=== PATIENT | female | born 1950 | race African-American/Black ===

== ENCOUNTER 2016-11-06 18:53 | Observation (INO) | payer MEDICARE, MEDICAID ==
[~2016-11-06] VITALS: Ht 160 cm; Wt 64.0 kg
[~2016-11-06 18:53] MED LIST: AMLO5 PO; ASPI-110 PO; FENO145T2 PO; FERR325T PO; FOSA70TA PO; LEVA750T PO; LEVE500 PO; LEVEMIR SQ; OMEG1CAP53 PO; PLAV75TA29 PO; PROT40TA PO; REME15TA PO
[2016-11-06 19:02] VITALS: BP 183/91; PULSE 96; RESP 18; TEMP 98.1; O2SAT 97
--- NOTE | 2016-11-06 19:18 | PD ---
HPI Chief Complaint: Altered Mental Status Time Seen by Provider: 19:13 Travel History International Travel<30 days: No Contact w/Intl Traveler<30days: No Traveled to known affect area: No History of Present Illness HPI The patient is a 66 year old female who presents to the [facility] emergency department with a history of altered mentation that began prior to arrival at her half-way. There is a report that the patient may have had an unwitnessed seizure and postictal. The patient was drowsy and less responsive. She was able to be awakened intermittently, however she would quickly fall back to sleep. The patient has a DNR status. The patient's history is significant for having a history of dementia and only being oriented to person. The patient reports that this time that she has abdominal pain on review of systems. She denies having any vomiting or diarrhea. She reports that she has been moving her bowels normally. Her other recent history is significant for reportedly having pneumonia status post treatment. She arrives afebrile. She arrives awake and alert. According to the record, she has a history of prior left-sided upper and lower extremity weakness at her baseline. The patient denies any recent fevers, neck pain, chest pain, shortness of breath, vomiting, diarrhea, or urinary symptoms. [facility] Past Medical History Narrative Medical The patient's past medical history is significant for dementia, history of recently diagnosed pneumonia status post treatment, history of coronary artery disease, hyperlipidemia, hypertension, prior history of cerebrovascular accident with residual left upper and left lower sternal weakness, acid reflux, history of urinary tract infection and pyelonephritis, history of nephrolithiasis, osteoporosis, osteoarthritis, diabetes mellitus. Anemia: Yes (IRON DEFICIENCY) Arthritis: Yes Asthma: No Heart Rhythm Problems: No Cancer: No Cardiovascular Problems: Yes High Cholesterol: Yes Chest Pain: No Congestive Heart Failure: No COPD: No Cerebrovascular Accident: Yes Diabetes: Yes Patient Takes Glucophage: No Diminished Hearing: Yes ([place]) Gastrointestinal Disorders: Yes (CANDIDAL STOMATITIS/HEMORRHOIDS) GERD: Yes Genitourinary: Yes Headaches: No Hepatitis: No Hiatal Hernia: No Hypertension: Yes Kidney Stones: Yes (08/04) Musculoskeletal: Yes (OSTEOPOROSIS/CONTRACTURE OF L ) Neurologic: No Psychiatric: No Reproductive: No Respiratory: No Migraines: No Myocardial Infarction: No Renal Failure: No Seizures: No Sleep Apnea: No Ulcer: No Menopausal: Yes Past Surgical History Narrative Surgical The patient's past surgical history is significant for left eye surgery, cataract surgery. Abdominal Surgery: No Appendectomy: No Cardiac Surgery: No Cholecystectomy: No Ear Surgery: No Endocrine Surgery: No Eye Surgery: Yes (EYE SURGERY 80'S ) Genitourinary Surgery: No Gynecologic Surgery: No Oral Surgery: No Thoracic Surgery: No Other Surgery: Yes (EYE SURGERY IN 80'S) Social History Alcohol Use: No Tobacco Use: No Substance Use: No Allergies-Medications (Allergen,Severity, Reaction): Coded Allergies: Benzodiazepines (Verified Allergy, Intermediate, 01/30/16) Penicillin (Verified Allergy, Mild, 05/10/09) Reported Meds & Prescriptions Reported Meds & Active Scripts Active Levaquin (Levofloxacin) 750 Mg Tab 750 Mg PO Q48H 5 Days Keppra (Levetiracetam) 500 Mg Tab 500 Mg PO Q12HR 30 Days Levemir Inj (Insulin Detemir) 1,000 unit/ 10 ML Vial 10 Units SQ DAILY 30 Days Norvasc (Amlodipine Besylate) 5 Mg Tab 5 Mg PO DAILY 30 Days Reported Protonix (Pantoprazole Sodium) 40 Mg Tab 40 Mg PO DAILY Plavix (Clopidogrel Bisulfate) 75 Mg Tab 75 Mg PO HS Remeron (Mirtazapine) 15 Mg Tab 15 Mg PO HS Lovaza (Bydod-3-Quha Ethyl Esters) 1 Gm Cap 2 Gm PO HS Fosamax (Alendronate Sodium) 70 Mg Tab 70 Mg PO WEEKLY Ferrous Sulfate 325 Mg Tab 325 Mg PO DAILY Fenofibrate 145 Mg Tab 145 Mg PO HS Aspirin 81 (Aspirin) 81 Mg Tabdr 81 Mg PO DAILY Review of Systems Except as stated in HPI: all other systems reviewed are Neg General / Constitutional: No: Fever Eyes: No: Visual changes HENT: No: Headaches Cardiovascular: No: Chest Pain or Discomfort Respiratory: No: Shortness of Breath Gastrointestinal: Positive: Abdominal Pain, No: Nausea, Vomiting, Diarrhea Genitourinary: No: Dysuria Musculoskeletal: No: Pain Skin: No Rash Neurologic: Positive: Change in Mentation, No: Weakness, Focal Abnormalities, Slurred Speech, Sensory Disturbance Psychiatric: No: Depression Endocrine: No: Polydipsia Hematologic/Lymphatic: No: Easy Bruising Physical Exam Narrative General: The patient is a well-developed well-nourished female in no acute distress. Head and Neck exam: Head is normocephalic atraumatic. Eyes: Pupils are equal round and reactive to light. Nose: Midline septum with pink mucous membranes Mouth: Dentition unremarkable. Moist mucus membranes. Posterior oropharynx is not erythematous. No tonsillar hypertrophy. Uvula midline. Airway patent. Neck: No palpable lymphadenopathy. No nuchal rigidity. No thyromegaly. Cardiovascular: Regular rate and rhythm without murmurs, gallops, or rubs. Lungs: Clear to auscultation bilaterally. No wheezes, rhonchi, or rales. Abdomen: Soft, with tenderness reported on palpation of bilateral upper quadrants of the abdomen and the left lower quadrant. The patient has increased tenderness on palpation of the left lower quadrant of the abdomen. There is no guarding, rebound, or rigidity. The patient has normal active bowel sounds. The patient has a negative Streeter sign. Patient has no tenderness on palpation over McBurney's point. Extremities: No clubbing, cyanosis, or edema. 2+ pulses in all 4 extremities. No calf tenderness on palpation. Back: No spinous process tenderness to palpation. No costovertebral angle tenderness to palpation. Neurologic Exam: She is oriented to person, however not place, time, or situation. The patient has left upper and left lower extremity paresis, with a prior history of residual weakness related to receive cerebrovascular accident. No evidence of facial asymmetry. Skin Exam: No rash noted. Intact skin that is warm and dry. Data Data Last Documented VS Vital Signs Date Time Temp Pulse Resp B/P Pulse Ox O2 Delivery O2 Flow Rate FiO2 11/06/16 20:18 97 Room Air 11/06/16 19:06 92 18 11/06/16 19:02 98.1 183/91 Orders Electrocardiogram (11/06/16 ) Complete Blood Count With Diff (11/06/16 19:18) Comprehensive Metabolic Panel (11/06/16 19:18) Prothrombin Time / Inr (Pt) (11/06/16 19:18) Act Partial Throm Time (Ptt) (11/06/16 19:18) Lactic Acid Sepsis Protocol (11/06/16 19:18) Magnesium (Mg) (11/06/16 19:18) Lipase (11/06/16 19:18) Ckmb (Isoenzyme) Profile (11/06/16 19:18) Troponin I (11/06/16 19:18) Urinalysis - C+S If Indicated (11/06/16 19:18) Blood Culture (11/06/16 19:18) Chest, Single Ap (11/06/16 19:18) Blood Glucose (11/06/16 19:18) Ecg Monitoring (11/06/16 19:18) Iv Access Insert/Monitor (11/06/16 19:18) Oximetry (11/06/16 19:18) Oxygen Administration (11/06/16 19:18) Ct Brain W/O Iv Contrast(Rout) (11/06/16 19:18) Urine Culture (11/06/16 19:55) Ceftriaxone Inj (Rocephin Inj) (11/06/16 20:30) Sodium Chlorid 0.9% 500 Ml Inj (Ns 500 M (11/06/16 20:30) Sodium Chlor 0.9% 1000 Ml Inj (Ns 1000 M (11/06/16 20:30) Admit Order (Ed Use Only) (11/06/16 20:28) Ct Abd/Pel W/O Iv Contrast (11/06/16 19:19) Labs Laboratory Tests Test 11/06/16 11/06/16 19:22 19:55 White Blood Count 9.8 TH/MM3 Red Blood Count 3.68 MIL/MM3 Hemoglobin 12.0 GM/DL Hematocrit 35.4 % Mean Corpuscular Volume 96.3 FL Mean Corpuscular Hemoglobin 32.7 PG Mean Corpuscular Hemoglobin 33.9 % Concent Red Cell Distribution Width 14.4 % Platelet Count 341 TH/MM3 Mean Platelet Volume 8.2 FL Neutrophils (%) (Auto) 60.3 % Lymphocytes (%) (Auto) 29.6 % Monocytes (%) (Auto) 8.9 % Eosinophils (%) (Auto) 0.9 % Basophils (%) (Auto) 0.3 % Neutrophils # (Auto) 5.9 TH/MM3 Lymphocytes # (Auto) 2.9 TH/MM3 Monocytes # (Auto) 0.9 TH/MM3 Eosinophils # (Auto) 0.1 TH/MM3 Basophils # (Auto) 0.0 TH/MM3 CBC Comment DIFF FINAL Differential Comment Prothrombin Time 10.6 SEC Prothromb Time International 1.0 RATIO Ratio Activated Partial 24.1 SEC Thromboplast Time Sodium Level 141 MEQ/L Potassium Level 4.7 MEQ/L Chloride Level 108 MEQ/L Carbon Dioxide Level 25.5 MEQ/L Anion Gap 8 MEQ/L Blood Urea Nitrogen 33 MG/DL Creatinine 1.88 MG/DL Estimat Glomerular Filtration 32 ML/MIN Rate Random Glucose 162 MG/DL Lactic Acid Level 1.7 mmol/L Calcium Level 10.2 MG/DL Magnesium Level 2.1 MG/DL Total Bilirubin 0.2 MG/DL Aspartate Amino Transf 9 U/L (AST/SGOT) Alanine Aminotransferase 16 U/L (ALT/SGPT) Alkaline Phosphatase 57 U/L Total Creatine Kinase 59 U/L Troponin I LESS THAN 0.02 NG/ML Total Protein 9.1 GM/DL Albumin 3.7 GM/DL Lipase 338 U/L Urine Color LIGHT-YELLOW Urine Turbidity HAZY Urine pH 6.5 Urine Specific Addison 1.011 Urine Protein NEG mg/dL Urine Glucose (UA) NEG mg/dL Urine Ketones NEG mg/dL Urine Occult Blood TRACE Urine Nitrite NEG Urine Bilirubin NEG Urine Urobilinogen LESS THAN 2.0 MG/DL Urine Leukocyte Esterase LARGE Urine RBC 5 /hpf Urine WBC 133 /hpf Urine WBC Clumps OCC Urine Squamous Epithelial <1 /hpf Cells Urine Bacteria OCC /hpf Urine Yeast (Budding) OCC Microscopic Urinalysis Comment CATH-CULTURE IND MDM Medical Decision Making Medical Screen Exam Complete: Yes Emergency Medical Condition: Yes Medical Record Reviewed: Yes Differential Diagnosis Differential diagnosis in this patient includes altered mentation related to post ictal state, versus sepsis from urinary tract infection, versus pneumonia, versus intracranial abnormality, versus metabolic encephalopathy. Narrative Course During the course of the patients emergency department visit, the patients history, examination, and differential diagnosis were reviewed with the patient. The patient had IV access obtained and blood work sent for analysis. The patient was placed on a ekg monitor tech with oximetry and blood pressure monitoring. An EKG was ordered. A chest x-ray, CT scan of the brain was ordered. The patient was provided normal saline IV fluids for hydration. The patients laboratory studies were reviewed and remarkable for a CBC with a normal white count, no other acute abnormality. CMP shows renal insufficiency, compared to previously her BUN creatinine have increased with the current BUN of 33, creatinine 1.88. Urinalysis shows hazy urine trace occult blood large leukocyte esterase 5 RBCs WBCs 133 occasional clumps occasional bacteria buddng yeast, culture indicated. Radiology studies were reviewed and remarkable for a chest x-ray that shows no acute abnormality. A CT scan of the brain shows atrophy and encephalomalacia from remote right cerebral infarct, no acute abnormality. A CT scan of the abdomen and pelvis shows mild atherosclerotic disease, nonobstructing bilateral renal calculi, prominent stool ball within the rectum, basilar atelectasis bilaterally. The patient will be admitted to the hospital for continued evaluation and treatment. The patient's mentation has improved as back at her baseline, the patient's symptoms could've been related to a postictal state from a seizure. The patient does also have a urinary tract infection noted. The patient will be admitted for observation, IV fluids, mild dehydration, IV antibiotic for UTI. The patients results were discussed with the patient, including the plan of care. I explained that further testing and/ or monitoring is indicated based on the patients history, examination, and/ or laboratory findings. Therefore, I recommended admission for additional evaluation. The patient expressed understanding and was agreeable with this plan. The patient was admitted to the hospital in stable condition and sent to a bed under the [facility]. Sepsis Criteria SIRS Criteria (2 or more): Heart rate over 90 Physician Communication Physician Communication The patient's case was discussed with Dr. Beckman who did agree to admit the patient for further evaluation and treatment at this time. Diagnosis Primary Impression: Altered mental status Qualified Code: R41.82 - Altered mental status, unspecified altered mental status type Additional Impressions: Urinary tract infection Qualified Code: N39.0 - Urinary tract infection without hematuria, site unspecified Mild dehydration Admitting Information Admitting Physician Requests: Observation Domenica Rowe MD Nov 06, 2016 19:17
[2016-11-06 19:41] LABS: AUTOMATED NEUTROPHIL # 5.9 TH/MM3 (1.8-7.7); BASOPHIL % 0.3 % (0.0-2.0); EOSINOPHIL # 0.1 TH/MM3 (0-0.4); EOSINOPHIL % 0.9 % (0.0-4.0); HEMATOCRIT 35.4 % (35.0-46.0); HEMO FLAGS DIFF FINAL; LYMPH % 29.6 % (9.0-44.0); LYMPHOCYTE # 2.9 TH/MM3 (1.0-4.8); MEAN CELL VOLUME 96.3 FL (80.0-100.0); MEAN CORPUSCULAR HEMOGLOBIN 32.7 PG (27.0-34.0); MEAN CORPUSCULAR HGB CONC 33.9 % (32.0-36.0); MONO % 8.9 % (0.0-8.0); NEUT % 60.3 % (16.0-70.0); PLATELET COUNT 341 TH/MM3 (150-450); RED BLOOD COUNT 3.68 MIL/MM3 (4.00-5.30); RED CELL DISTRIBUTION WIDTH 14.4 % (11.6-17.2); WHITE BLOOD COUNT 9.8 TH/MM3 (4.0-11.0)
[2016-11-06 19:53] LABS: APTT (PATIENT) 24.1 SEC (24.3-30.1); PROTHROMBIN TIME - PATIENT 10.6 SEC (9.8-11.6)
[2016-11-06 20:00] VITALS: BP 171/98; PULSE 94; RESP 18; O2SAT 94
[2016-11-06 20:09] LABS: ANION GAP 8 MEQ/L (5-15); AST (GOT) 9 U/L (15-37); BICARBONATE 25.5 MEQ/L (21.0-32.0); BLOOD UREA NITROGEN 33 MG/DL (7-18); CHLORIDE 108 MEQ/L (98-107); GLOMERULAR FILTRATION RATE 32 ML/MIN (>89); MAGNESIUM 2.1 MG/DL (1.5-2.5); POTASSIUM 4.7 MEQ/L (3.5-5.1); SODIUM (NA) 141 MEQ/L (136-145)
--- NOTE | 2016-11-06 20:11 | RADRPT ---
EXAM DATE/TIME: 11/06/2016 19:51 [facility] COMPARISON: CHEST SINGLE AP, September 06, 2016, 8:20. INDICATIONS : Cough MEDICAL HISTORY : None. SURGICAL HISTORY : None. ENCOUNTER: Initial ACUITY: 1 day PAIN SCORE: 0/10 LOCATION: Bilateral chest FINDINGS: A single view of the chest demonstrates the lungs to be symmetrically aerated without evidence of mas s, infiltrate or effusion. The cardiomediastinal contours are unremarkable. Osseous structures are intact. CONCLUSION: No acute disease. Brian Rogers MD on November 06, 2016 at 20:09 Board Certified Radiologist. This report was verified electronically.
[2016-11-06 20:12] LABS: BACTERIA, URINE OCC /hpf; BLOOD, URINE TRACE (NEG); COMMENT (UR) CATH-CULTURE IND; CULTURE IF INDICATED CATH CULTURE IND; GLUCOSE,URINE NEG (NEG); KETONE, URINE NEG (NEG); NITRITE,URINE NEG (NEG); PH, URINE 6.5 (5.0-8.5); SQUAMOUS EPITHELIAL CELL URINE <1 /hpf (0-5); URINE COLOR LIGHT-YELLOW (YELLW/STRAW)
[2016-11-06 20:14] LABS: ALKALINE PHOSPHATASE 57 U/L (45-117); ALT (GPT) 16 U/L (10-53); TOTAL BILIRUBIN ADULT 0.2 MG/DL (0.2-1.0)
[2016-11-06 20:18] VITALS: O2SAT 97
[2016-11-06 20:29] LABS: CREATINE KINASE 59 U/L (26-192)
[2016-11-06] MEDS ORDERED: NALOXONE HCL 0.4 MG/ML AMP IV PRN (20:30)
[2016-11-06] MEDS ORDERED: cefTRIAXone INJ 1,000 MG in SODIUM CHLORIDE 0.9% INJ 100 ML IV ONE (20:30)
[2016-11-06] MEDS ORDERED: SODIUM CHLORID 0.9% 500 ML INJ 500 ML IV ONE (20:30)
[2016-11-06] MEDS ORDERED: SODIUM CHLORIDE 0.9% FLUSH 5 ML FLUSH FLUSH PRN (20:30)
--- NOTE | 2016-11-06 20:59 | RADRPT ---
EXAM DATE/TIME: 11/06/2016 20:44 [facility] COMPARISON: CT BRAIN W/O CONTRAST, September 04, 2016, 13:16. INDICATIONS : Drowsy and less responsive. Altered mental status. RADIATION DOSE: 43.32 CTDIvol (mGy) MEDICAL HISTORY : Cerebrovascular disease. Cardiovascular disease Hypertension. SURGICAL HISTORY : Eye surgeries. ENCOUNTER: Initial ACUITY: 1 day PAIN SCALE: Non-responsive LOCATION: cranial TECHNIQUE: Multiple contiguous axial images were obtained of the head. Using automated exposure control and adj ustment of the mA and/or kV according to patient size, radiation dose was kept as low as reasonably a chievable to obtain optimal diagnostic quality images. FINDINGS: There is atrophy and encephalomalacia from remote right cerebral infarct. No evidence of acute infarc t, intracranial hemorrhage or mass. Patchy periventricular white matter disease. No fractures. CONCLUSION: No significant change has occurred. Brian Rogers MD on November 06, 2016 at 20:56 Board Certified Radiologist. This report was verified electronically.
[2016-11-06] MEDS: SODIUM CHLORIDE 0.9% FLUSH 5 ML FLUSH FLUSH SCH (21:00)
[2016-11-06] MEDS ORDERED: LORazepam 2 MG/ML VIAL IV PUSH PRN (21:00)
--- NOTE | 2016-11-06 21:04 | RADRPT ---
EXAM DATE/TIME: 11/06/2016 20:47 [facility] COMPARISON: No previous studies available for comparison. INDICATIONS : Diverticulitis and lower abdominal pain. ORAL CONTRAST: No oral contrast ingested. RADIATION DOSE: 13.64 CTDIvol (mGy) MEDICAL HISTORY : Renal calculi. Hypertension. SURGICAL HISTORY : None. ENCOUNTER: Initial ACUITY: 1 day PAIN SCALE: Non-responsive LOCATION: Bilateral lower quadrant TECHNIQUE: Volumetric scanning of the abdomen and pelvis was performed. Using automated exposure control and ad justment of the mA and/or kV according to patient size, radiation dose was kept as low as reasonably achievable to obtain optimal diagnostic quality images. FINDINGS: The spleen a nodular contour. Coronary artery calcification is noted. Liver, gallbladder, pancreas, a drenal glands are normal in appearance. Nonobstructing right lower pole renal calculus measuring 5 mm on image 46. Left upper pole calculi are noted, to measuring up to 4 mm on image 32. Punctate 2 mm l eft lower pole calculus. Urinary bladder, uterus and adnexa are normal. There is a prominent stool ba ll in the rectum. A moderate amount of stool is noted within the colon. No evidence for diverticulosi s or diverticulitis. Stomach and small bowel are normal. Appendix is normal. No adenopathy or aneurys m there is scattered atherosclerotic calcifications are seen. Degenerative changes of the spine are n oted. Urinary bladder unremarkable. There are atelectatic changes at the bases. CONCLUSION: 1. Mild atherosclerotic disease. 2. Nonobstructing bilateral renal calculi. 3. Prominent stool ball within the rectum. 4. Basilar atelectasis bilaterally. Brian Rogers MD on November 06, 2016 at 21:00 Board Certified Radiologist. This report was verified electronically.
[2016-11-06] MEDS: SODIUM CHLOR 0.9% 1000 ML INJ 1,000 ML IV SCH (22:02)
[2016-11-06] MEDS ORDERED: GLUC40GE PO (22:25)
[2016-11-06] MEDS ORDERED: BACT800T5 PO (22:25)
[2016-11-06] MEDS ORDERED: LOPE2CAP PO (22:25)
[2016-11-06] MEDS ORDERED: ASPE10GE TOPICAL (22:25)
[2016-11-06] MEDS ORDERED: DEXT1SUS PO (22:25)
[2016-11-06] MEDS ORDERED: [UNRECOGNIZED DRUG - CODE] (22:25)
[2016-11-06] MEDS ORDERED: GLUC1KIT IM (22:25)
[2016-11-06] MEDS ORDERED: NYST500000 PO (22:25)
[2016-11-06] MEDS ORDERED: PROBCAP11 (22:25)
[2016-11-06] MEDS ORDERED: PROC2.5C RECTAL (22:25)
[2016-11-06] MEDS ORDERED: HUMALOG SQ (22:25)
[2016-11-06 22:41] VITALS: BP 159/94; PULSE 87; RESP 18; O2SAT 99
[2016-11-07] VITALS (7 sets, daily range): BP systolic 118–169; BP diastolic 74–96; PULSE 76–98; RESP 16–20; TEMP 97–98.7; O2SAT 95–99
[2016-11-07] MEDS: SODIUM CHLOR 0.9% 1000 ML INJ 1,000 ML IV SCH ×2 (05:21→13:33)
[2016-11-07 05:54] LABS: AUTOMATED NEUTROPHIL # 4.3 TH/MM3 (1.8-7.7); BASOPHIL % 0.6 % (0.0-2.0); EOSINOPHIL # 0.1 TH/MM3 (0-0.4); EOSINOPHIL % 1.3 % (0.0-4.0); HEMATOCRIT 37.2 % (35.0-46.0); HEMO FLAGS DIFF FINAL; LYMPH % 33.4 % (9.0-44.0); LYMPHOCYTE # 2.7 TH/MM3 (1.0-4.8); MEAN CELL VOLUME 95.9 FL (80.0-100.0); MEAN CORPUSCULAR HEMOGLOBIN 32.3 PG (27.0-34.0); MEAN CORPUSCULAR HGB CONC 33.7 % (32.0-36.0); NEUT % 52.7 % (16.0-70.0); PLATELET COUNT 308 TH/MM3 (150-450); RED BLOOD COUNT 3.88 MIL/MM3 (4.00-5.30); RED CELL DISTRIBUTION WIDTH 14.3 % (11.6-17.2); WHITE BLOOD COUNT 8.1 TH/MM3 (4.0-11.0)
[2016-11-07 06:14] LABS: BICARBONATE 23.1 MEQ/L (21.0-32.0); POTASSIUM 4.9 MEQ/L (3.5-5.1)
[2016-11-07] MEDS ORDERED: GLUCAGON 1 MG/ML VIAL OTHER PRN (07:30)
[2016-11-07] MEDS ORDERED: DEXTROSE 50% IN WATER 50 ML VIAL(D50) IV PUSH PRN (07:30)
[2016-11-07] MEDS ORDERED: levETIRAcetam 500 MG TAB PO SCH (09:00)
[2016-11-07] MEDS: cefTRIAXone INJ 1,000 MG in SODIUM CHLORIDE 0.9% INJ 100 ML IV SCH ×2 (09:40→19:58)
[2016-11-07] MEDS: SODIUM CHLORIDE 0.9% FLUSH 5 ML FLUSH FLUSH SCH ×2 (09:41→21:00)
--- NOTE | 2016-11-07 10:56 | HHI.HP ---
Dr. Webber [facility] Steven Webber MD Admission Diagnosis AMS, UTI Diagnoses: Chief Complaint: Altered mental status Travel History International Travel<30 Days: No Contact w/Intl Traveler <30 Da: No Traveled to Known Affected Are: No History of Present Illness 66-year-old female with a past medical history of CVA with residual left-sided weakness, HLD, HTN, GERD, DM, seizure disorder, dementia who presented with altered mental status. The patient was sent from her long-term because she was difficult to arouse and unresponsive. There is reported possible witnessed seizure activity. Patient has a history of dementia and is oriented to self and place, not to time. Her sister is at bedside to assist with the history. Reportedly the patient has been awake, alert, and responsive since arriving in the ED. She reports medication compliance including Keppra. Per records she has been on Bactrim since 10/31, patient unsure why. She does have a nonproductive cough, no chest pain or shortness of breath. She denies any fevers, chills, headache, dizziness, decreased appetite, dysuria, abdominal pain , back pain., Discussed with RN, good oral intake, ate 80% of breakfast. Patient's sister report left-sided weakness and mental status are baseline. Review of Systems Other 10 point review of systems performed and was negative except as stated in the history of present illness Past Family Social History Past Medical History CVA with residual left-sided weakness Hypertension Hyperlipidemia GERD Diabetes mellitus Seizure disorder Dementia Denies history of AK or CAD Past Surgical History Cataract surgery Reported Medications Keppra (Levetiracetam) 500 Mg Tab 500 Mg PO Q12HR 30 Days Levemir Inj (Insulin Detemir) 1,000 unit/ 10 ML Vial 10 Units SQ DAILY 30 Days Norvasc (Amlodipine Besylate) 5 Mg Tab 5 Mg PO DAILY 30 Days Robitussin 12 Hour Cough Liq (Dextromethorphan Polistirex Liq) 30 Mg/5 Ml Jeanna 10 Ml PO Q12H PRN Proctosol Hc (Hydrocortisone Rectal) 2.5% Cream 1 Applic RECTAL BID PRN Probiotic (Probiotic Product) 1 Cap Cap Nystatin 500,000 Unit Tab 1,000,000 Units PO Q8H Loperamide (Loperamide HCl) 2 Mg Cap 2 Mg PO DIRECTED PRN One capsule after each loose stool. Not to exceed 8 capsules per day. Humalog Inj (Insulin Human Lispro) 1,000 Unit/10 Ml Vial 2-12 Units SQ ACHS Max dose at bedtime:( )units; sugars < 70,(0)units; sugars 150-199,(2)units; sugars 200-249,(4)units; sugars 250-299,(7)units; sugars 300-349,(10)units; sugars more than 349,(12)units. Glucose Gel (Dextrose) 40 % Gel 1 Tube PO DIRECTED Glucagon Emergency Inj Kit (Glucagon (Rdna) Inj Kit) 1 Mg Kit 1 Mg IM ONCE PRN Hm Laxative (Bisacodyl) 10 Mg Sup Bactrim DS (Sulfamethoxazole-Trimethoprim) 800-160 Mg Tab 1 Tab PO BID Aspercreme Heat Topical (Menthol Topical) 10 % Gel 1 Applic TOPICAL DIRECTED PRN Protonix (Pantoprazole Sodium) 40 Mg Tab 40 Mg PO DAILY Plavix (Clopidogrel Bisulfate) 75 Mg Tab 75 Mg PO HS Remeron (Mirtazapine) 15 Mg Tab 15 Mg PO HS Lovaza (Mmvpm-9-Lyli Ethyl Esters) 1 Gm Cap 2 Gm PO HS Fosamax (Alendronate Sodium) 70 Mg Tab 70 Mg PO WEEKLY Ferrous Sulfate 325 Mg Tab 325 Mg PO DAILY Fenofibrate 145 Mg Tab 145 Mg PO HS Aspirin 81 (Aspirin) 81 Mg Tabdr 81 Mg PO DAILY Allergies: Coded Allergies: Benzodiazepines (Verified Allergy, Intermediate, 01/30/16) Penicillin (Verified Allergy, Mild, 05/10/09) Active Ordered Medications Current Medications Medications (Trade) Dose Ordered Sig/Nikia Route Start Time Stop Time Status Last Admin (NS 1000 ml Inj) 1,000 ml @ 100 mls/hr Q10H IV 11/06/16 20:30 11/07/16 05:21 (NS Flush) 2 ml UNSCH PRN FLUSH 11/06/16 20:30 (NS Flush) 2 ml BID FLUSH 11/06/16 21:00 11/07/16 09:41 (Narcan Inj) 0.4 mg UNSCH PRN IV 11/06/16 20:30 Lorazepam 1 mg 1 mg Q15M PRN IV PUSH 11/06/16 21:00 (Rocephin Inj/NS Inj) 100 ml @ 200 mls/hr Q12H IV 11/07/16 08:00 11/07/16 09:40 (D50w (Vial) Inj) 25 ml UNSCH PRN IV PUSH 11/07/16 07:30 (Glucagon Inj) 1 mg UNSCH PRN OTHER 11/07/16 07:30 (Norvasc) 5 mg DAILY PO 11/07/16 09:00 (Ecotrin Ec) 81 mg DAILY PO 11/07/16 09:00 (Plavix) 75 mg HS PO 11/07/16 21:00 (Levemir Inj) 10 units DAILY SQ 11/07/16 09:00 (Protonix) 40 mg DAILY PO 11/07/16 09:00 (Tricor) 145 mg HS PO 11/07/16 21:00 (Remeron) 15 mg HS PO 11/07/16 21:00 (Keppra) 1,000 mg Q12HR PO 11/07/16 21:00 UNV Non-Formulary Medication 2 gm HS PO 11/07/16 21:00 UNV Family History Reviewed, no family history pertinent for chief complaint Social History SNF resident Denies any alcohol or tobacco use Physical Exam Vital Signs Vital Signs Date Time Temp Pulse Resp B/P Pulse Ox O2 Delivery O2 Flow Rate FiO2 11/07/16 03:00 90 19 118/75 96 Room Air 11/07/16 01:29 87 20 121/80 95 11/06/16 22:41 87 18 159/94 99 Room Air 11/06/16 20:18 97 Room Air 11/06/16 20:18 97 Room Air 11/06/16 20:00 94 18 171/98 94 Room Air 11/06/16 19:06 92 18 97 Room Air 11/06/16 19:02 98.1 96 18 183/91 97 Physical Exam GENERAL: Well-developed well-nourished. Pleasant female who appears older than stated age. In no acute distress. SKIN: Warm and dry. No lesions noted. HEENT: Normocephalic. Pupils equal and round. Mucous membranes pink and moist. CARDIOVASCULAR: Regular rate and rhythm. No murmur appreciated. RESPIRATORY: No accessory muscle use. Clear to auscultation. Breath sounds equal bilaterally. GASTROINTESTINAL: Abdomen soft, non-tender, nondistended. Bowel sounds x4. MUSCULOSKELETAL: No obvious deformities. No clubbing or cyanosis. No edema. NEUROLOGICAL: Awake and alert. Left hand with some spastic movements to command , but diffusely weak. Left lower extremity unable to lift against gravity. Normal strength right side. Normal speech. PSYCHIATRIC: Appropriate mood and affect; insight and judgment fair. Oriented to person and place Laboratory Laboratory Tests Test 11/06/16 11/06/16 11/07/16 19:22 19:55 05:31 White Blood Count 9.8 8.1 Red Blood Count 3.68 3.88 Hemoglobin 12.0 12.5 Hematocrit 35.4 37.2 Mean Corpuscular Volume 96.3 95.9 Mean Corpuscular Hemoglobin 32.7 32.3 Mean Corpuscular Hemoglobin 33.9 33.7 Concent Red Cell Distribution Width 14.4 14.3 Platelet Count 341 308 Mean Platelet Volume 8.2 7.9 Neutrophils (%) (Auto) 60.3 52.7 Lymphocytes (%) (Auto) 29.6 33.4 Monocytes (%) (Auto) 8.9 12.0 Eosinophils (%) (Auto) 0.9 1.3 Basophils (%) (Auto) 0.3 0.6 Neutrophils # (Auto) 5.9 4.3 Lymphocytes # (Auto) 2.9 2.7 Monocytes # (Auto) 0.9 1.0 Eosinophils # (Auto) 0.1 0.1 Basophils # (Auto) 0.0 0.0 CBC Comment DIFF FINAL DIFF FINAL Differential Comment Prothrombin Time 10.6 Prothromb Time International 1.0 Ratio Activated Partial 24.1 Thromboplast Time Sodium Level 141 139 Potassium Level 4.7 4.9 Chloride Level 108 107 Carbon Dioxide Level 25.5 23.1 Anion Gap 8 9 Blood Urea Nitrogen 33 32 Creatinine 1.88 1.65 Estimat Glomerular Filtration 32 38 Rate Random Glucose 162 177 Lactic Acid Level 1.7 Calcium Level 10.2 10.3 Magnesium Level 2.1 Total Bilirubin 0.2 Aspartate Amino Transf 9 (AST/SGOT) Alanine Aminotransferase 16 (ALT/SGPT) Alkaline Phosphatase 57 Total Creatine Kinase 59 Troponin I LESS THAN 0.02 Total Protein 9.1 Albumin 3.7 Lipase 338 Urine Color LIGHT-YELLOW Urine Turbidity HAZY Urine pH 6.5 Urine Specific Dutton 1.011 Urine Protein NEG Urine Glucose (UA) NEG Urine Ketones NEG Urine Occult Blood TRACE Urine Nitrite NEG Urine Bilirubin NEG Urine Urobilinogen LESS THAN 2.0 Urine Leukocyte Esterase LARGE Urine RBC 5 Urine WBC 133 Urine WBC Clumps OCC Urine Squamous Epithelial <1 Cells Urine Bacteria OCC Urine Yeast (Budding) OCC Microscopic Urinalysis Comment CATH-CULTURE IND Date/Time Procedure Status Source Growth 11/06/16 19:55 Urine Culture Received Urine Catheterized Urine Pending 11/06/16 19:25 Aerobic Blood Culture Received Blood Peripheral Pending 11/06/16 19:25 Anaerobic Blood Culture Received Blood Peripheral Pending Result Diagram: 11/07/1653011/07/16530 Imaging Last Impressions Abdomen/Pelvis CT 11/06/161918 Signed Impressions: Service Date/Time: Sunday, November 06, 2016 20:47 - CONCLUSION: 1. Mild atherosclerotic disease. 2. Nonobstructing bilateral renal calculi. 3. Prominent stool ball within the rectum. 4. Basilar atelectasis bilaterally. Brian Rogers MD Head CT 11/06/161917 Signed Impressions: Service Date/Time: Sunday, November 06, 2016 20:44 - CONCLUSION: No significant change has occurred. Brian Rogers MD Chest X-Ray 11/06/161917 Signed Impressions: Service Date/Time: Sunday, November 06, 2016 19:51 - CONCLUSION: No acute disease. Brian Rogers MD Assessment and Plan Problem List: (1) Urinary tract infection ICD Code: N39.0 Status: Acute (2) Altered mental status ICD Code: R41.82 Status: Acute (3) Seizure ICD Code: R56.9 Status: Acute (4) Diabetes mellitus type 2 in nonobese ICD Code: E11.9 Status: Chronic (5) History of cerebrovascular accident with hemiparesis or hemiplegia ICD Code: Z86.73 Status: Chronic Assessment and Plan 66-year-old female with a past medical history of CVA with residual left-sided weakness, HLD, HTN, GERD, DM, seizure disorder, dementia who presented with altered mental status Acute metabolic encephalopathy: Possibly secondary to dehydration versus UTI versus seizure versus fecal impaction. Head CT with no acute changes. Afebrile with no leukocytosis. Chest x-ray clear. Workup as below. Neuro checks. PT eval. Seizure disorder: On Keppra. Possible seizure at SNF prior to admission. Currently undergoing EEG, follow-up results. Increase Keppra to 1000 mg twice daily. Seizure precautions. UTI: UA with evidence of UTI. Failed outpatient therapy, has been on Bactrim 1 week. On empiric IV Rocephin twice a day. Follow-up urine culture. Acute kidney injury: Creatinine 1.88, previously 1.19 on 09/08/16. Improving overnight, 1.65. Continue IVF. Follow-up BMP. Fecal impaction: Abdominal CT shows prominent stool ball within the rectum. Manual disimpaction. Monitor intake and output. Diabetes mellitus: Continue home Levemir. Additional coverage with SSI with Accu-Cheks. Sacral erythema: Reported per nursing notes. Unable to assess at this time as patient is undergoing EEG. Follow-up. May need wound care assessment. Other chronic medical conditions including CVA, HTN, HLD, GERD: Stable of this time and will continue home medications as indicated. DVT prophylaxis: SCDs Written by Cash Myers, acting as scribe for Dr. Calero on 11/07/16 at 10:56. The documentation accurately reflects the work performed [id number] by me on at 1056 Discussed Condition With Patient with sister bedside, ED RN Problem Qualifiers (1) Urinary tract infection: Qualified Code: N39.0 - Urinary tract infection without hematuria, site unspecified (2) Altered mental status: Qualified Code: R41.82 - Altered mental status, unspecified altered mental status type Cash Myers Nov 07, 2016 10:56 Jayy Calero MD Nov 07, 2016 18:25
[2016-11-07] MEDS ORDERED: INSULIN ASPART SUPPLEMENTAL SCALE SQ SCH (11:00)
--- NOTE | 2016-11-07 12:41 | MG ---
cc: LORA CHOW M.D. Lab No: [id number] Date: 11/07/2016 Age: 66 Sex: F Race: __ DATE OF [address] Beckman INDICATIONS This is a 66-year-old patient room E59, awake with photic stimulation. EEG 09/05/[address] shows atrophy and encephalomalacia and the right cerebral infarct. Admitted with change in mental status and a witnessed seizure postictal. History of stroke, dementia, hyperlipidemia. CURRENT MEDICATIONS 1. Plavix 2. Aspirin 3. Keppra 4. Protonix 5. Levemir 6. Norvasc DESCRIPTION OF RECORD Quite a bit of background slowing predominately 2-3 Hz, a lot of eye movement, tried to put a towel over patient's face, but ongoing basically delta slowing. EKG looks sinus. Photic stimulation, no significant driving, more artifact. IMPRESSION Moderate slowing consistent with likely encephalopathy. I do not appreciate any epileptic activity. Clinical correlation. MD ARMANDO Isidro/ESPERANZA /12:34 PM /12:37 PM
[2016-11-07] MEDS: INSULIN DETEMIR 100 UNITS/ML VIAL SQ SCH (13:33)
[2016-11-07] MEDS: INSULIN ASPART SUPPLEMENTAL SCALE SQ SCH ×3 (13:34→20:18)
[2016-11-07] MEDS: PANTOPRAZOLE SOD 40 MG DELAYED RELEASE TAB PO SCH (13:44)
[2016-11-07] MEDS: ASPIRIN EC 81 MG TABEC PO SCH (13:44)
[2016-11-07] MEDS: amLODIPine BESYLATE 5 MG TAB PO SCH (13:44)
[2016-11-07] MEDS: FENOFIBRATE 145 MG TAB PO SCH (20:11)
[2016-11-07] MEDS: MIRTAZAPINE 15 MG TAB PO SCH (20:11)
[2016-11-07] MEDS: levETIRAcetam 500 MG TAB PO SCH (20:12)
[2016-11-07] MEDS: DOCUSATE SODIUM 50 MG/SENNA 8.6 MG TAB PO SCH (20:13)
[2016-11-07] MEDS: CLOPIDOGREL 75 MG TAB PO SCH (20:13)
[2016-11-07] MEDS ORDERED: NON-FORMULARY DRUG (Omega-3-Acid Ethyl Esters (Lovaza) 2 GM) PO SCH (21:00)
--- NOTE | 2016-11-07 22:37 | EKG ---
Date Performed: 11/06/2016 Time Performed: 19:12:33 PTAGE: 66 years EKG: Sinus rhythm VOLTAGE CRITERIA FOR LVH NONSPECIFIC T-WAVE ABNORMALITY ABNORMAL ECG PREVIOUS TRACING : 09/05/2016 19.45 Compared to prior tracing no significant change DOCTOR: Marvin Tomlinson Interpretating Date/Time 11/07/2016 22:34:49
[2016-11-08] MEDS: SODIUM CHLOR 0.9% 1000 ML INJ 1,000 ML IV SCH ×3 (01:24→20:26)
[2016-11-08 03:35] VITALS: BP 134/77; PULSE 88; RESP 18; TEMP 98; O2SAT 98
[2016-11-08] MEDS: INSULIN ASPART SUPPLEMENTAL SCALE SQ SCH ×4 (06:35→20:29)
[2016-11-08 07:24] VITALS: BP 143/76; PULSE 9; PULSE 90; RESP 16; TEMP 98; O2SAT 96
[2016-11-08 08:29] LABS: BICARBONATE 21.8 MEQ/L (21.0-32.0); MAGNESIUM 2.1 MG/DL (1.5-2.5)
[2016-11-08 08:52] LABS: POTASSIUM 4.7 MEQ/L (3.5-5.1)
[2016-11-08] MEDS: SODIUM CHLORIDE 0.9% FLUSH 5 ML FLUSH FLUSH SCH ×2 (09:00→20:26)
[2016-11-08] MEDS: ASPIRIN EC 81 MG TABEC PO SCH (09:59)
[2016-11-08] MEDS: DOCUSATE SODIUM 50 MG/SENNA 8.6 MG TAB PO SCH ×2 (09:59→20:28)
[2016-11-08] MEDS: PANTOPRAZOLE SOD 40 MG DELAYED RELEASE TAB PO SCH (09:59)
[2016-11-08] MEDS: amLODIPine BESYLATE 5 MG TAB PO SCH (09:59)
[2016-11-08] MEDS: levETIRAcetam 500 MG TAB PO SCH ×2 (09:59→20:27)
[2016-11-08] MEDS: cefTRIAXone INJ 1,000 MG in SODIUM CHLORIDE 0.9% INJ 100 ML IV SCH (09:59)
[2016-11-08] MEDS: INSULIN DETEMIR 100 UNITS/ML VIAL SQ SCH (10:00)
[2016-11-08 11:10] VITALS: BP 131/84; PULSE 95; RESP 16; TEMP 98.3; O2SAT 97
--- NOTE | 2016-11-08 11:34 | HHI.PR ---
Subjective Remarks Follow-up for altered mental status. The patient remains oriented to self and hospital, and not oriented to time. She has no acute complaints today. She denies any pain. She states she's been eating well. She is not sure when her last BM was. Discussed with the ED RN yesterday, patient had a large bowel movement yesterday. Objective Vitals Vital Signs Date Time Temp Pulse Resp B/P Pulse Ox O2 Delivery O2 Flow Rate FiO2 11/08/16 11:10 98.3 95 16 131/84 97 11/08/16 07:24 98.0 90 16 143/76 96 11/08/16 03:35 98.0 88 18 134/77 98 11/07/16 23:13 97.9 87 16 123/81 99 11/07/16 20:16 97.0 98 16 144/81 96 11/07/16 18:12 98.4 98 16 169/96 95 11/07/16 17:15 98.7 76 18 141/74 98 11/07/16 13:13 98.4 98 20 139/82 98 I/O 11/07/16 11/07/16 11/07/16 11/08/16 11/08/16 11/08/16 07:00 15:00 23:00 07:00 15:00 23:00 Intake Total 348 ml 360 ml Balance 348 ml 360 ml Intake Oral 360 ml IV Total 348 ml # Voids 1 1 # Bowel Movements 1 Result Diagram: 11/07/16 0531 11/08/16 0743 Imaging Last Impressions Abdomen/Pelvis CT 11/06/161918 Signed Impressions: Service Date/Time: Sunday, November 06, 2016 20:47 - CONCLUSION: 1. Mild atherosclerotic disease. 2. Nonobstructing bilateral renal calculi. 3. Prominent stool ball within the rectum. 4. Basilar atelectasis bilaterally. Brian Rogers MD Head CT 11/06/161917 Signed Impressions: Service Date/Time: Sunday, November 06, 2016 20:44 - CONCLUSION: No significant change has occurred. Brian Rogers MD Chest X-Ray 11/06/161917 Signed Impressions: Service Date/Time: Sunday, November 06, 2016 19:51 - CONCLUSION: No acute disease. Brian Rogers MD Objective Remarks GENERAL: Well-developed well-nourished. Pleasant female who appears older than stated age. In no acute distress. SKIN: Warm and dry. No lesions noted. HEENT: Normocephalic. Pupils equal and round. Mucous membranes pink and moist. CARDIOVASCULAR: Regular rate and rhythm. No murmur appreciated. RESPIRATORY: No accessory muscle use. Clear to auscultation. Breath sounds equal bilaterally. GASTROINTESTINAL: Abdomen soft, non-tender, nondistended. Bowel sounds x4. MUSCULOSKELETAL: No obvious deformities. No clubbing or cyanosis. No edema. NEUROLOGICAL: Awake and alert. Left-sided weakness. Normal speech. PSYCHIATRIC: Appropriate mood and affect; insight and judgment fair. Oriented to person and place A/P Problem List: (1) Urinary tract infection ICD Code: N39.0 Status: Acute (2) Altered mental status ICD Code: R41.82 Status: Resolved (3) Seizure ICD Code: R56.9 Status: Acute (4) Diabetes mellitus type 2 in nonobese ICD Code: E11.9 Status: Chronic (5) History of cerebrovascular accident with hemiparesis or hemiplegia ICD Code: Z86.73 Status: Chronic Assessment and Plan 66-year-old female with a past medical history of CVA with residual left-sided weakness, HLD, HTN, GERD, DM, seizure disorder, dementia who presented with altered mental status Acute metabolic encephalopathy: Possibly secondary to dehydration versus UTI versus seizure versus fecal impaction. Head CT with no acute changes. Afebrile with no leukocytosis. Chest x-ray clear. Treatment as below. Neuro checks. PT eval. Seizure disorder: On Keppra. Possible seizure at SNF prior to admission. EEG showed moderate slowing with likely encephalopathy but no appreciable epileptic activity. Increased Keppra to 1000 mg twice daily. Seizure precautions. UTI: UA with evidence of UTI. Failed outpatient therapy, had been on Bactrim 1 week. On empiric IV Rocephin twice a day. Follow-up urine culture. Acute kidney injury: Creatinine 1.88, previously 1.19 on 09/08/16. Continues to improve with IVF, creatinine 1.48 today. Continue IVF. Follow-up BMP. Fecal impaction: Abdominal CT showed prominent stool ball within the rectum. Resolved spontaneously. Started on Colace. Monitor intake and output. Diabetes mellitus: Continue home Levemir. Additional coverage with SSI with Accu-Cheks. Sacral erythema: Reported by family. applicator sprayer consult. Other chronic medical conditions including CVA, HTN, HLD, GERD: Stable at this time and will continue home medications as indicated. DVT prophylaxis: SCDs Written by Cash Myers, acting as scribe for Dr. Mata on 11/08/16 at 11:31. Discharge Planning Improving, likely DC back to SNF tomorrow if patient remains stable. Attending Statement The documentation accurately reflects the work performed [id number] by me, Dr. Mata on 11/08/16 at 11:31. Problem Qualifiers (1) Urinary tract infection: Qualified Code: N39.0 - Urinary tract infection without hematuria, site unspecified (2) Altered mental status: Qualified Code: R41.82 - Altered mental status, unspecified altered mental status type Cash Myers Nov 08, 2016 11:34 Martin Mata MD Dec 03, 2016 02:10
[2016-11-08] MEDS ORDERED: FLUCONAZOLE 100 MG TAB PO ONE (14:45)
[2016-11-08 16:16] VITALS: BP 155/86; PULSE 94; RESP 18; TEMP 98; O2SAT 98
[2016-11-08 19:17] VITALS: BP 141/81; PULSE 98; RESP 18; TEMP 98.2; O2SAT 96
[2016-11-08 20:00] VITALS: PULSE 96
[2016-11-08] MEDS: MIRTAZAPINE 15 MG TAB PO SCH (20:27)
[2016-11-08] MEDS: FENOFIBRATE 145 MG TAB PO SCH (20:27)
[2016-11-08] MEDS: CLOPIDOGREL 75 MG TAB PO SCH (20:27)
[2016-11-09 00:56] VITALS: BP 140/75; PULSE 90; RESP 18; TEMP 98.2; O2SAT 96
[2016-11-09] MEDS: INSULIN ASPART SUPPLEMENTAL SCALE SQ SCH ×2 (05:01→13:03)
[2016-11-09] MEDS: SODIUM CHLOR 0.9% 1000 ML INJ 1,000 ML IV SCH (05:01)
[2016-11-09 05:04] VITALS: BP 136/77; PULSE 84; RESP 18; TEMP 97.8; O2SAT 96
[2016-11-09 05:20] LABS: BICARBONATE 24.2 MEQ/L (21.0-32.0)
[2016-11-09 05:29] LABS: POTASSIUM 4.3 MEQ/L (3.5-5.1)
[2016-11-09 07:08] VITALS: BP 170/88; PULSE 88; RESP 17; TEMP 98; O2SAT 94
--- NOTE | 2016-11-09 08:41 | HHI.PR ---
Subjective Remarks Follow up for AMS. The patient is awake, alert, oriented to person, place, president Obama, October, but states the year is 1988. She states she fell this morning, however upon further questioning she states she must have been dreaming about falling. RN reports no fall last night or this morning. The patient reports BM yesterday. She is looking forward to breakfast this morning. She has no specific medical complaints. Objective Vitals Vital Signs Date Time Temp Pulse Resp B/P Pulse Ox O2 Delivery O2 Flow Rate FiO2 11/09/16 07:08 98.0 88 17 170/88 94 11/09/16 05:04 97.8 84 18 136/77 96 11/09/16 00:56 98.2 90 18 140/75 96 11/08/16 20:00 96 11/08/16 19:17 98.2 98 18 141/81 96 11/08/16 16:16 98.0 94 18 155/86 98 11/08/16 11:10 98.3 95 16 131/84 97 I/O 11/08/16 11/08/16 11/08/16 11/09/16 11/09/16 11/09/16 07:00 15:00 23:00 07:00 15:00 23:00 Intake Total 360 ml 240 ml Balance 360 ml 240 ml Intake Oral 360 ml 240 ml # Voids 1 1 Result Diagram: 11/07/16 0531 11/09/16 0432 Imaging Last Impressions Abdomen/Pelvis CT 11/06/161918 Signed Impressions: Service Date/Time: Sunday, November 06, 2016 20:47 - CONCLUSION: 1. Mild atherosclerotic disease. 2. Nonobstructing bilateral renal calculi. 3. Prominent stool ball within the rectum. 4. Basilar atelectasis bilaterally. Brian Rogers MD Head CT 11/06/161917 Signed Impressions: Service Date/Time: Sunday, November 06, 2016 20:44 - CONCLUSION: No significant change has occurred. Brian Rogers MD Chest X-Ray 11/06/161917 Signed Impressions: Service Date/Time: Sunday, November 06, 2016 19:51 - CONCLUSION: No acute disease. Brian Rogers MD Objective Remarks GENERAL: Well-nourished, well-developed female patient in NAD. SKIN: Warm and dry. No rash. HEAD: Normocephalic. Atraumatic. EYES: Pupils equal and round. No scleral icterus. No injection or drainage. ENT: No nasal bleeding or discharge. Mucous membranes pink and moist. NECK: Supple. Trachea midline. CARDIOVASCULAR: Regular rate and rhythm. S1, S2 noted. No murmur appreciated. RESPIRATORY: No accessory muscle use. Clear to auscultation. Breath sounds equal bilaterally. GASTROINTESTINAL: Abdomen soft, non-tender, nondistended. Normoactive bowel sounds x4. MUSCULOSKELETAL: No obvious deformities. Extremities without clubbing, cyanosis , or edema. NEUROLOGICAL: Awake and alert, oriented to person, place, month/president but not year. Left sided weakness. Normal speech. PSYCHIATRIC: Appropriate mood and affect; insight and judgment fair. Medications and IVs Current Medications Medications (Trade) Dose Ordered Sig/Nikia Route Start Time Stop Time Status Last Admin (NS 1000 ml Inj) 1,000 ml @ 100 mls/hr Q10H IV 11/06/16 20:30 11/09/16 05:01 (NS Flush) 2 ml UNSCH PRN FLUSH 11/06/16 20:30 (NS Flush) 2 ml BID FLUSH 11/06/16 21:00 11/08/16 20:26 (Narcan Inj) 0.4 mg UNSCH PRN IV 11/06/16 20:30 (Ativan Inj) 1 mg Q15M PRN IV PUSH 11/06/16 21:00 (D50w (Vial) Inj) 25 ml UNSCH PRN IV PUSH 11/07/16 07:30 (Glucagon Inj) 1 mg UNSCH PRN OTHER 11/07/16 07:30 (Norvasc) 5 mg DAILY PO 11/07/16 09:00 11/08/16 09:59 (Ecotrin Ec) 81 mg DAILY PO 11/07/16 09:00 11/08/16 09:59 (Plavix) 75 mg HS PO 11/07/16 21:00 11/08/16 20:27 (Levemir Inj) 10 units DAILY SQ 11/07/16 09:00 11/08/16 10:00 (Protonix) 40 mg DAILY PO 11/07/16 09:00 11/08/16 09:59 (Tricor) 145 mg HS PO 11/07/16 21:00 11/08/16 20:27 (Remeron) 15 mg HS PO 11/07/16 21:00 11/08/16 20:27 (Keppra) 1,000 mg Q12HR PO 11/07/16 21:00 11/08/16 20:27 (Kristal-Colace) 1 tab BID PO 11/07/16 21:00 11/08/16 20:28 Urinary Catheter: No Vascular Central Line Catheter: No A/P Problem List: (1) Urinary tract infection ICD Code: N39.0 Status: Acute (2) Altered mental status ICD Code: R41.82 Status: Resolved (3) Seizure ICD Code: R56.9 Status: Acute (4) Diabetes mellitus type 2 in nonobese ICD Code: E11.9 Status: Chronic (5) History of cerebrovascular accident with hemiparesis or hemiplegia ICD Code: Z86.73 Status: Chronic Assessment and Plan 66-year-old female with a past medical history of CVA with residual left-sided weakness, HLD, HTN, GERD, DM, seizure disorder, dementia who presented with altered mental status Acute metabolic encephalopathy: Suspect secondary to dehydration, UTI, seizure, and fecal impaction. Head CT with no acute changes. Afebrile with no leukocytosis. CXR clear. Treatment as below. Neuro checks. PT eval, need rehab, patient is from [facility], case management consulted for options regarding discharge planning. Seizure disorder: On Keppra. Possible seizure at SNF prior to admission. EEG showed moderate slowing with likely encephalopathy but no appreciable epileptic activity. Increased Keppra to 1000 mg twice daily. Seizure precautions. UTI: UA with evidence of UTI. Failed outpatient therapy, had been on Bactrim 1 week. Given empiric IV Rocephin bid. Final urine culture with Humaira 10- 15K. Given that the patient is asymptomatic, will not treat candiduria any further. Acute kidney injury: Creatinine 1.88, previously 1.19 on 09/08/16. Continues to improve with IVF, creatinine 1.42 today. Continue IVF. Monitor BMP. Fecal impaction: Abdominal CT showed prominent stool ball within the rectum. Started on Colace. Monitor intake and output. Resolved spontaneously. Diabetes mellitus: Continue home Levemir. Additional coverage with SSI with Accu-Cheks. Sacral erythema: Reported by family. automobile technician consult. Other chronic medical conditions including CVA, HTN, HLD, GERD: Stable at this time and will continue home medications as indicated. DVT prophylaxis: SCDs Discharge Planning Case management discussed with family. Cannot go to SNF given observation status however CM contacted [facility] who is able to arrange PT at the [facility]. Patient and family agrees with this plan. Discussed with Dr. Mata. Discharge patient to [facility] with [facility] Condition on discharge: Improved Heart Healthy Diet as tolerated Ad Vanesa activity Rx written: Keppra 1000mg po bid, Kristal-Colace bid Follow-up with primary care physician Dr. Webber within 1 week, and neurology Attending Statement The exam, history, and the medical decision-making described in the above note were completed with the assistance of the mid-level provider. I reviewed and agree with the findings presented. I attest that I had a [id number] encounter with the patient on the same day, and personally performed and documented my assessment and findings in the medical record. Problem Qualifiers (1) Urinary tract infection: Qualified Code: N39.0 - Urinary tract infection without hematuria, site unspecified (2) Altered mental status: Qualified Code: R41.82 - Altered mental status, unspecified altered mental status type Heidi Hawkins PA-C Nov 09, 2016 08:41 Martin Mata MD Nov 19, 2016 17:32
[2016-11-09] MEDS: DOCUSATE SODIUM 50 MG/SENNA 8.6 MG TAB PO SCH (10:33)
[2016-11-09] MEDS: amLODIPine BESYLATE 5 MG TAB PO SCH (10:34)
[2016-11-09] MEDS: INSULIN DETEMIR 100 UNITS/ML VIAL SQ SCH (10:34)
[2016-11-09] MEDS: ASPIRIN EC 81 MG TABEC PO SCH (10:34)
[2016-11-09] MEDS: levETIRAcetam 500 MG TAB PO SCH (10:34)
[2016-11-09] MEDS: PANTOPRAZOLE SOD 40 MG DELAYED RELEASE TAB PO SCH (10:34)
[2016-11-09] MEDS: SODIUM CHLORIDE 0.9% FLUSH 5 ML FLUSH FLUSH SCH (10:35)
[2016-11-09 11:52] VITALS: BP 181/106; PULSE 97; RESP 18; TEMP 98; O2SAT 95
[2016-11-09 12:15] VITALS: BP 150/90
[2016-11-09] MEDS ORDERED: LEVE500 PO (14:34)
[2016-11-09] MEDS ORDERED: SENN1TAB PO (14:34)
--- NOTE | 2016-11-09 14:36 | HHI.FF ---
Face to Face Verification Diagnosis: (1) Seizure (2) History of CVA with residual deficit (3) Diabetes mellitus type 2 in nonobese (4) Hypertension (5) Weakness Physical Therapy Order: Evaluate and Treat, Improve ambulation, Strength and gait training Home Health Nursing Order: Medical education Signs/symptoms of disease process Diabetic education Nursing assessment with vital signs I have seen patient Ben Flores on 11/09/16. My clinical findings support the need for the requested home health care services because: Ltd mobility - disease progression Deconditioned w/ increased weakness Med compliance is questionable Limited ability to care for self Need for psychosocial assistance Impaired cognition/judgement I certify that my clinical findings support that this patient is homebound because: Impaired cognitive ability/safety Unsteady gait/balance Unsafe to leave home unassisted Need for psychosocial assistance Unable to use public transportation Heidi Hawkins PA-C Nov 09, 2016 14:36
[2016-11-09 15:52] VITALS: BP 163/90; PULSE 94; RESP 18; TEMP 98.2; O2SAT 94
--- NOTE | 2016-11-09 18:15 | HHI.DS ---
cc: Dr. Webber Discharge Summary Admission Date Nov 06, 2016 at 8:29 pm Discharge Date: Nov 09, 2016 Admitting Diagnosis AMS, UTI (1) Seizure ICD Code: R56.9 Diagnosis: Principal (2) Altered mental status ICD Code: R41.82 Diagnosis: Principal (3) Urinary tract infection ICD Code: N39.0 Diagnosis: Secondary (4) Diabetes mellitus type 2 in nonobese ICD Code: E11.9 Diagnosis: Secondary (5) Hypertension ICD Code: I10 Diagnosis: Secondary (6) Hyperlipidemia ICD Code: E78.5 Diagnosis: Secondary (7) History of CVA with residual deficit ICD Code: I69.30 Diagnosis: Secondary Procedures None Brief History - From Admission 66-year-old female with a past medical history of CVA with residual left-sided weakness, HLD, HTN, GERD, DM, seizure disorder, dementia who presented with altered mental status. [facility] because she was difficult to arouse and unresponsive. There is reported possible witnessed seizure activity. Patient has a history of dementia and is oriented to self and place, not to time. Her sister is at bedside to assist with the history. Reportedly the patient has been awake, alert, and responsive since arriving in the ED. She reports medication compliance including Keppra. Per records she has been on Bactrim since 10/31, patient unsure why. She does have a nonproductive cough, no chest pain or shortness of breath. She denies any fevers, chills, headache, dizziness, decreased appetite, dysuria, abdominal pain , back pain., Discussed with RN, good oral intake, ate 80% of breakfast. Patient's sister report left-sided weakness and mental status are baseline. CBC/BMP: 11/07/16 0531 11/09/16 0432 Significant Findings Laboratory Tests Test 11/06/16 11/06/16 11/07/16 11/08/16 19:22 19:55 05:31 07:43 Red Blood Count 3.68 MIL/MM3 3.88 MIL/MM3 (4.00-5.30) (4.00-5.30) Monocytes (%) (Auto) 8.9 % (0.0-8.0) 12.0 % (0.0-8.0) Activated Partial 24.1 SEC Thromboplast Time (24.3-30.1) Chloride Level 108 MEQ/L 110 MEQ/L (98-107) (98-107) Blood Urea Nitrogen 33 MG/DL (7-18) 32 MG/DL (7-18) 33 MG/DL (7-18) Creatinine 1.88 MG/DL 1.65 MG/DL 1.48 MG/DL (0.50-1.00) (0.50-1.00) (0.50-1.00) Estimat Glomerular Filtration 32 ML/MIN (>89) 38 ML/MIN (>89) 43 ML/MIN (>89) Rate Random Glucose 162 MG/DL 177 MG/DL 135 MG/DL (74-106) (74-106) (74-106) Calcium Level 10.2 MG/DL 10.3 MG/DL (8.5-10.1) (8.5-10.1) Aspartate Amino Transf 9 U/L (15-37) (AST/SGOT) Troponin I LESS THAN 0.02 NG/ML (0.02-0.05) Total Protein 9.1 GM/DL (6.4-8.2) Urine Turbidity HAZY (CLEAR) Urine Occult Blood TRACE (NEG) Urine Leukocyte Esterase LARGE (NEG) Urine RBC 5 /hpf (0-3) Urine WBC 133 /hpf (0-5) Urine WBC Clumps OCC (NONE) Urine Bacteria OCC /hpf (NONE) Urine Yeast (Budding) OCC (NONE) Monocytes # (Auto) 1.0 TH/MM3 (0-0.9) Test 11/09/16 04:32 Blood Urea Nitrogen 28 MG/DL (7-18) Creatinine 1.42 MG/DL (0.50-1.00) Estimat Glomerular Filtration 45 ML/MIN (>89) Rate Random Glucose 177 MG/DL (74-106) Imaging Last Impressions Abdomen/Pelvis CT 11/06/169 Signed Impressions: Service Date/Time: Sunday, November 06, 2016 20:47 - CONCLUSION: 1. Mild atherosclerotic disease. 2. Nonobstructing bilateral renal calculi. 3. Prominent stool ball within the rectum. 4. Basilar atelectasis bilaterally. Brian Rogers MD Head CT 11/06/161917 Signed Impressions: Service Date/Time: Sunday, November 06, 2016 20:44 - CONCLUSION: No significant change has occurred. Brian Rogers MD Chest X-Ray 11/06/161917 Signed Impressions: Service Date/Time: Sunday, November 06, 2016 19:51 - CONCLUSION: No acute disease. Brian Rogers MD PE at Discharge GENERAL: Well-nourished, well-developed female patient in NAD. SKIN: Warm and dry. No rash. HEAD: Normocephalic. Atraumatic. EYES: Pupils equal and round. No scleral icterus. No injection or drainage. ENT: No nasal bleeding or discharge. Mucous membranes pink and moist. NECK: Supple. Trachea midline. CARDIOVASCULAR: Regular rate and rhythm. S1, S2 noted. No murmur appreciated. RESPIRATORY: No accessory muscle use. Clear to auscultation. Breath sounds equal bilaterally. GASTROINTESTINAL: Abdomen soft, non-tender, nondistended. Normoactive bowel sounds x4. MUSCULOSKELETAL: No obvious deformities. Extremities without clubbing, cyanosis , or edema. NEUROLOGICAL: Awake and alert, oriented to person, place, month/president but not year. Left sided weakness. Normal speech. PSYCHIATRIC: Appropriate mood and affect; insight and judgment fair. Hospital Course 66-year-old female with a past medical history of CVA with residual left-sided weakness, HLD, HTN, GERD, DM, seizure disorder, dementia who presented with altered mental status Acute metabolic encephalopathy: Suspect secondary to Seizure in combination with dehydration, UTI, and fecal impaction. Head CT with no acute changes. Afebrile with no leukocytosis. CXR clear. Treatment as below. Neuro checks. PT eval, need rehab, patient is from [facility], case management consulted for options regarding discharge planning. Seizure disorder: On Keppra. Possible seizure at [facility] prior to admission. EEG showed moderate slowing with likely encephalopathy but no appreciable epileptic activity. Increased Keppra to 1000 mg twice daily. Seizure precautions. No further episodes throughout admission. UTI: UA with evidence of UTI. Failed outpatient therapy, had been on Bactrim 1 week. Given empiric IV Rocephin bid. Final urine culture with Humaira 10- 15K. Given that the patient is asymptomatic, will not treat candiduria any further. Acute kidney injury: Creatinine 1.88, previously 1.19 on 09/08/16. Continues to improve with IVF, creatinine 1.42 today. Continue IVF. Monitor BMP. Fecal impaction: Abdominal CT showed prominent stool ball within the rectum. Started on Colace. Monitor intake and output. Resolved spontaneously. Diabetes mellitus: Continue home Levemir. Additional coverage with SSI with Accu-Cheks. Sacral erythema: Reported by family. car scrubber consult. Other chronic medical conditions including CVA, HTN, HLD, GERD: Stable at this time and will continue home medications as indicated. DVT prophylaxis: SCDs Discharge Planning Case management discussed with family. Cannot go to [facility] given observation status however CM contacted [facility] who is able to arrange PT at the [facility]. Patient and family agrees with this plan. Discussed with Dr. Mata. Discharge patient to [facility] with [facility] Condition on discharge: Improved Heart Healthy Diet as tolerated Ad Vanesa activity Rx written: Keppra 1000mg po bid, Kristal-Colace bid Follow-up with primary care physician Dr. Webber within 1 week, and neurology Pt Condition on Discharge: Stable Discharge Disposition: [facility] with [facility] Discharge Time: > 30 minutes Discharge Instructions DIET: Follow Instructions for: Heart Healthy Diet, Diabetic Diet Activities you can perform: Regular-No Restrictions Activities to Avoid: Driving Other Activity Instructions: No driving or operating heavy machinery. No swimming or bathing alone, ok to shower. No climbing heights or carrying small children. These activities increase your risk for injury or to yourself or others if you were to have a seizure. Avoid alcohol, stressful situations, caffeine, lack of sleep, loud noises, flashing lights, and dehydration as these can all trigger a seizure. Follow up Referrals: Neurology PCP Follow-up - 1 Week with Steven Webber MD New Medications: Levetiracetam (Keppra) 500 Mg Tab 1000 MG PO Q12HR Control Seizures #120 TAB Sennosides-Docusate Sodium (Senna Plus 8.6-50 mg) 1 Tab Tab 1 TAB PO BID Constipation #60 TAB Continued Medications: Alendronate (Fosamax) 70 Mg Tab 70 MG PO WEEKLY Osteoporosis Treatment #4 Ref 0 TAB Amlodipine (Norvasc) 5 Mg Tab 5 MG PO DAILY Blood Pressure Management Days [address] (Aspirin 81) 81 Mg Tabdr 81 MG PO DAILY Ref 0 TAB Bisacodyl (Hm Laxative) 10 Mg Sup Clopidogrel (Plavix) 75 Mg Tab 75 MG PO HS Blood Clot Prevention #30 Ref 0 TAB Dextromethorphan Polistirex Liq (Robitussin 12 Hour Cough Liq) 30 Mg/5 Ml Jeanna 10 ML PO Q12H PRN COUGH #89 Ref 0 ML Dextrose Gel (Glucose Gel) 40 % Gel 1 TUBE PO DIRECTED Blood Sugar Management #3 Ref 0 TUBE Fenofibrate (Fenofibrate) 145 Mg Tab 145 MG PO HS #30 Ref 0 TAB Ferrous Sulfate (Ferrous Sulfate) 325 Mg Tab 325 MG PO DAILY Nutritional Supplement #30 Ref 0 TAB Glucagon (Rdna) Inj Kit (Glucagon Emergency Inj Kit) 1 Mg Kit 1 MG IM ONCE PRN Blood Sugar Management #1 Ref 0 KIT Insulin Detemir Inj (Levemir Inj) 1,000 unit/ 10 ML Vial 10 UNITS SQ DAILY Blood Sugar Management Days 30 INJECTION Insulin Lispro (Human) Inj (Humalog Inj) 1,000 Unit/10 Ml Vial 2-12 UNITS SQ ACHS Max dose at bedtime:( )units; sugars < 70,(0)units; sugars 150-199,(2)units; sugars 200-249,(4)units; sugars 250-299,(7)units; sugars 300- 349,(10)units; sugars more than 349,(12)units. Blood Sugar Management #1 Ref 0 VIAL Loperamide (Loperamide) 2 Mg Cap 2 MG PO DIRECTED One capsule after each loose stool. Not to exceed 8 capsules per day. PRN DIARRHEA Ref 0 CAP Menthol Topical (Aspercreme Heat Topical) 10 % Gel 1 APPLIC TOPICAL DIRECTED PRN PAIN #1 Ref 0 TUBE Mirtazapine (Remeron) 15 Mg Tab 15 MG PO HS Depression Control #30 Ref 0 TAB Nystatin (Nystatin) 500,000 Unit Tab [id number] UNITS PO Q8H Infection Ref 0 TAB [id number] Ethyl Esters (Lovaza) 1 Gm Cap 2 GM PO HS Manage Triglycerides #120 Ref 0 CAP Pantoprazole (Protonix) 40 Mg Tab 40 MG PO DAILY Reflux #30 Ref 0 TAB Probiotic Product (Probiotic) 1 Cap Cap Discontinued Medications: Hydrocortisone Rectal (Proctosol Hc) 2.5% Cream 1 APPLIC RECTAL BID PRN PAIN/INFLAMMATION #1 Ref 0 TUBE Levetiracetam (Keppra) 500 Mg Tab 500 MG PO Q12HR Seizure Control Days 30 TAB Sulfamethoxazole-Trimethoprim (Bactrim DS) 800-160 Mg Tab 1 TAB PO BID Infection Ref 0 TAB Additional Information The exam, history, and the medical decision-making described in the above note were completed with the assistance of the mid-level provider. I reviewed and agree with the findings presented. I attest that I had a [id number] encounter with the patient on the same day, and personally performed and documented my assessment and findings in the medical record. Heidi Hawkins PA-C Nov 09, 2016 18:14 Martin Mata MD Nov 19, 2016 18:07
== END 2016-11-09 18:03 | disposition home or self-care (01) ==
LOC: NEPE 18:53 → NEDA 20:29 → NEDH 11-07 00:29 → NEPHCDU 11-07 18:07
PROVIDERS: ADMIT Internal Medicine; ATTEND Internal Medicine
DX: R56.9 Unspecified convulsions (principal); R41.82 Altered mental status, unspecified; N39.0 Urinary tract infection, site not specified; B96.89 Other specified bacterial agents as the cause of diseases classified elsewhere; E11.9 Type 2 diabetes mellitus without complications; E78.5 Hyperlipidemia, unspecified; I69.354 Hemiplegia and hemiparesis following cerebral infarction affecting left non-dominant side; I25.10 Atherosclerotic heart disease of native coronary artery without angina pectoris; I10 Essential (primary) hypertension; R94.31 Abnormal electrocardiogram [ECG] [EKG]; F03.90 Unspecified dementia, unspecified severity, without behavioral disturbance, psychotic disturbance, mood disturbance, and anxiety; J98.11 Atelectasis; K21.9 Gastro-esophageal reflux disease without esophagitis; G93.89 Other specified disorders of brain; E86.0 Dehydration; E78.00 Pure hypercholesterolemia, unspecified; H91.90 Unspecified hearing loss, unspecified ear; K56.41 Fecal impaction; M19.90 Unspecified osteoarthritis, unspecified site; M81.0 Age-related osteoporosis without current pathological fracture; N20.0 Calculus of kidney; Z79.84 Long term (current) use of oral hypoglycemic drugs; Z66 Do not resuscitate
CPT/HCPCS: 70450; 71010; 74176; 80048; 80053; 81001; 82550; 82948; 83605; 83690; 83735; 84484; 85025; 85610; 85730; 87040; 87086; 93005; 95819; 97110; 97163; 97530; 99285; G0378; J0696; J1815; J7030; J7040